=== PATIENT | female | born 1955 | race Caucasian/White ===

== ENCOUNTER 2017-05-29 21:46 | Emergency (ER) | payer OTHER ==
[~2017-05-29] VITALS: Ht 167.6 cm; Wt 68.2 kg
[~2017-05-29 21:46] MED LIST: NO HOME MEDS; PERCOCET 5/325M1 TAB OR
[2017-05-29] MEDS ORDERED: AMOXICILLIN875 MG PO (22:47)
[2017-05-29 23:15] VITALS: BP 90/66
== END 2017-05-29 23:15 | disposition home or self-care (01) | DRG 605 ==
LOC: ED 21:46
PROC: 0HQFXZZ Repair Right Hand Skin, External Approach (ICD-10-PCS; principal; 2017-05-29)
DX: S61.252A Open bite of right middle finger without damage to nail, initial encounter (principal); I50.9 Heart failure, unspecified; J44.9 Chronic obstructive pulmonary disease, unspecified; Z85.118 Personal history of other malignant neoplasm of bronchus and lung; F17.210 Nicotine dependence, cigarettes, uncomplicated; W54.0XXA Bitten by dog, initial encounter; Y92.009 Unspecified place in unspecified non-institutional (private) residence as the place of occurrence of the external cause

== ENCOUNTER 2017-06-08 17:38 | Emergency (ER) | payer OTHER ==
[~2017-06-08] VITALS: Ht 167.6 cm; Wt 90.0 kg
[~2017-06-08 17:38] MED LIST changes: +AMOXICILLIN875 MG PO
[2017-06-08 17:55] VITALS: BP 98/55
== END 2017-06-08 18:00 | disposition home or self-care (01) | DRG 950 ==
LOC: ED 17:38
DX: S61.252D Open bite of right middle finger without damage to nail, subsequent encounter (principal); Z48.02 Encounter for removal of sutures; W54.0XXD Bitten by dog, subsequent encounter